=== PATIENT | male | born 1935 | race Caucasian/White ===

== ENCOUNTER 2016-04-07 09:38 | Emergency (ER) | payer OTHER ==
[~2016-04-07] VITALS: Ht 167.6 cm; Wt 94.0 kg
[~2016-04-07 09:38] MED LIST: 1-ME1LIQ PO; ENAL20TA PO; HYDR-3533 PO; NOVO7030P2 SQ; ROBA500T PO; SYNT200T PO
[2016-04-07 09:39] VITALS: BP 226/98; PULSE 86; RESP 15; TEMP 98; O2SAT 96
--- NOTE | 2016-04-07 10:08 | PD ---
HPI Chief Complaint: GI Complaint Time Seen by Provider: 09:52 Travel History International Travel<30 days: No Contact w/Intl Traveler<30days: No Traveled to known affect area: No History of Present Illness HPI 80-year-old male came to the emergency room with history of constipation. Says he last went to the bathroom and had a good bowel movement was 3 days ago. He is not appeared to be in any significant distress. Vital signs are otherwise stable. He does have history of frequent constipation and took some milk of magnesia earlier today with no relief. PFSH Past Medical History Narrative Medical List of his past medical history as reviewed from the nursing note. Asthma: No Autoimmune Disease: No Heart Rhythm Problems: No Cardiac Catheterization: No Cardiovascular Problems: Yes High Cholesterol: Yes Congestive Heart Failure: No COPD: No Diabetes: Yes Patient Takes Glucophage: Yes (METFORMIN 0700) Diminished Hearing: No Genitourinary: Yes (ENLARGED PROSTATE) Heparin Induced Thrombocytopen: No Hypertension: Yes Respiratory: No Myocardial Infarction: No Sleep Apnea: No Influenza Vaccination: Yes Past Surgical History Cholecystectomy: Yes Coronary Artery Bypass Graft: No Eye Surgery: Yes (LT EYE) Family History Family Hypercholesterolemia: Yes Social History Alcohol Use: No Tobacco Use: No Substance Use: No Allergies-Medications (Allergen,Severity, Reaction): Coded Allergies: No Known Allergies (Verified , 06/10/14) Comments No known drug allergies. Reported Meds & Prescriptions Reported Meds & Active Scripts Active Miralax Powder (Polyethylene Glycol 3350 Powder) 17 Gm Powd 17 Gm PO DAILY Mix and dissolve one measuring cap-ful (17 grams) in water or juice. Robaxin (Methocarbamol) 500 Mg Tab 500 Mg PO Q8 PRN Lortab 5 mg/325 mg (Hydrocodone/Acetaminophen 5 mg/325 mg) 1 Tab 0.5-1 Tab PO Q6H PRN 1-Methyl 2-Pyrrolidinone (1-Methyl 2-Pyrrolidone (Bulk)) 10 Mg Tab 1 Tab PO DAILY Reported Novolin 70/30 (Insulin Human Isoph/Insulin Regular) 100 Units/Ml Inj 30 Units SQ DAILY Novolin 70/30 (Insulin Human Isoph/Insulin Regular) 100 Units/Ml Inj 20 Units SQ HS [id number] Mc2 200 Mcg Tab 100 Mcg PO DAILY TAKE ON AN EMPTY STOMACH Enalapril Maleate 20 Mg Tab 20 Mg PO DAILY Narrative Medication List of his home medications reviewed from the nursing note. Review of Systems Except as stated in HPI: all other systems reviewed are Neg Physical Exam Narrative GENERAL: Awake, alert, no obvious distress, looks much younger than his stated age. SKIN: Warm and dry. HEAD: Atraumatic. Normocephalic. EYES: Pupils equal and round. No scleral icterus. No injection or drainage. ENT: No nasal bleeding or discharge. Mucous membranes pink and moist. NECK: Trachea midline. No JVD. CARDIOVASCULAR: Regular rate and rhythm. No murmur appreciated. RESPIRATORY: No accessory muscle use. Clear to auscultation. Breath sounds equal bilaterally. GASTROINTESTINAL: Abdomen soft, non-tender, nondistended. Hepatic and splenic margins not palpable. Rectal exam has a hard ball of stool in the rectal vault. No obvious abnormalities in the rectal or perirectal area. MUSCULOSKELETAL: No obvious deformities. No clubbing. No cyanosis. No edema. NEUROLOGICAL: Awake and alert. No obvious cranial nerve deficits. Motor grossly within normal limits. Normal speech. PSYCHIATRIC: Appropriate mood and affect; insight and judgment normal. Data Data Last Documented VS Vital Signs Date Time Temp Pulse Resp B/P Pulse Ox O2 Delivery O2 Flow Rate FiO2 04/07/16 09:39 98.0 86 15 226/98 96 Orders Fleets Enema (Adult) (Fleets Enema (Adul (04/07/16 10:15) Blood Glucose (04/07/16 10:12) MDM Medical Decision Making Medical Screen Exam Complete: Yes Emergency Medical Condition: Yes Differential Diagnosis Constipation, obstipation Narrative Course 10:58 AM patient was given an adult Fleet enema and went to the bathroom and came out saying he had a good stool output and feels much better. Bedside blood glucose was 197. I'm comfortable discharging him home at this point. I will give him a prescription for 2 weeks of MiraLAX. And is on hydrocodone which is probably the reason for his frequent constipations. He will be advised for high fiber diet as well. Procedures EKG Prior to Arrival: No Diagnosis Primary Impression: Constipation Qualified Code: K59.03 - Drug-induced constipation Additional Impression: Constipation due to outlet obstruction Referrals: Primary Care Physician 3 days Additional Instructions: Please return to the ER if the condition worsens or any other new concerns. Take the medication as per the prescription direction. Drink lots of fluid and high fiber diet. Follow-up with your primary care. Med/Other Pt SpecificInfo: Prescription(s) given Scripts Polyethylene Glycol 3350 Powder (Miralax Powder)17 Gm Powd17 Gm PO DAILY #1 BOTTLE Ref 0 Mix and dissolve one measuring cap-ful (17 grams) in water or juice. Prov:Audrey Guy MD 04/07/16 Disposition: 01 DISCHARGE HOME Condition: Stable Audrey Guy MD Apr 07, 2016 10:08
[2016-04-07] MEDS ORDERED: SOD PHOSPHATE/SOD BIPHOSPHATE (ADULT) ENEMA 133ML PR ONE (10:15)
[2016-04-07] MEDS ORDERED: MIRA33504 PO (10:59)
== END 2016-04-07 11:17 | disposition home or self-care (01) ==
LOC: NEPA 09:38
DX: K59.03 Drug induced constipation (principal); K59.02 Outlet dysfunction constipation; E78.00 Pure hypercholesterolemia, unspecified; E11.9 Type 2 diabetes mellitus without complications; I10 Essential (primary) hypertension
CPT/HCPCS: 99283

== ENCOUNTER 2017-02-17 07:43 | Emergency (ER) | payer OTHER ==
[~2017-02-17] VITALS: Ht 165.1 cm; Wt 82.0 kg
[~2017-02-17 07:43] MED LIST changes: +MIRA33504 PO
[2017-02-17 07:45] VITALS: BP 231/104; PULSE 71; RESP 16; TEMP 98.1; O2SAT 99
[2017-02-17 08:09] VITALS: RESP 18; O2SAT 99
[2017-02-17 08:17] LABS: AUTOMATED NEUTROPHIL # 5.6 TH/MM3 (1.8-7.7); BASOPHIL % 0.6 % (0.0-2.0); EOSINOPHIL # 0.2 TH/MM3 (0-0.4); EOSINOPHIL % 2.1 % (0.0-4.0); HEMO FLAGS DIFF FINAL; LYMPH % 17.6 % (9.0-44.0); LYMPHOCYTE # 1.3 TH/MM3 (1.0-4.8); MEAN CELL VOLUME 85.3 FL (80.0-100.0); MEAN CORPUSCULAR HEMOGLOBIN 28.1 PG (27.0-34.0); MONO % 5.7 % (0.0-8.0); PLATELET COUNT 173 TH/MM3 (150-450); RED BLOOD COUNT 5.39 MIL/MM3 (4.50-5.90); RED CELL DISTRIBUTION WIDTH 14.8 % (11.6-17.2); WHITE BLOOD COUNT 7.5 TH/MM3 (4.0-11.0)
[2017-02-17 08:18] LABS: BLOOD, URINE NEG (NEG); GLUCOSE,URINE NEG (NEG); KETONE, URINE NEG (NEG); NITRITE,URINE NEG (NEG); URINE COLOR LIGHT-YELLOW (YELLW/STRAW)
[2017-02-17] MEDS ORDERED: GABA100C4 PO (08:19)
[2017-02-17] MEDS ORDERED: SYNT88TA PO (08:19)
[2017-02-17] MEDS ORDERED: LOSA50TA PO (08:19)
[2017-02-17 08:28] LABS: COMMENT (UR) CULT NOT INDICATED; CULTURE IF INDICATED CULT NOT INDICATED
[2017-02-17 08:34] LABS: ALT (GPT) 26 U/L (12-78); ANION GAP 4 MEQ/L (5-15); AST (GOT) 19 U/L (15-37); BICARBONATE 28.7 MEQ/L (21.0-32.0); BLOOD UREA NITROGEN 11 MG/DL (7-18); CHLORIDE 103 MEQ/L (98-107); GLOMERULAR FILTRATION RATE 63 ML/MIN (>89); POTASSIUM 4.4 MEQ/L (3.5-5.1); SODIUM (NA) 136 MEQ/L (136-145)
[2017-02-17 08:35] LABS: ALKALINE PHOSPHATASE 67 U/L (45-117); TOTAL BILIRUBIN ADULT 0.5 MG/DL (0.2-1.0)
--- NOTE | 2017-02-17 08:54 | PD ---
HPI Chief Complaint: Abdominal Pain Time Seen by Provider: 08:03 Travel History International Travel<30 days: No Contact w/Intl Traveler<30days: No Traveled to known affect area: No History of Present Illness HPI 81-year-old male presents with central abdominal bloating and nausea. He states that it's felt abnormal and is having difficulty describing it. He states he does have prostate issues and does not know if that is related. He states he is able to urinate but he urinates a lot. He states that he has no other concurrent complaints but patient is a very poor historian and just keeps stating that he has bloating and nausea. Location is epigastric. He states a couple days ago he also had some in his chest. [facility] Past Medical History Asthma: No Autoimmune Disease: No Heart Rhythm Problems: No Cardiac Catheterization: No Cardiovascular Problems: Yes High Cholesterol: Yes Congestive Heart Failure: No COPD: No Diabetes: Yes Patient Takes Glucophage: No Diminished Hearing: No Genitourinary: Yes (ENLARGED PROSTATE) Heparin Induced Thrombocytopen: No Hypertension: Yes Respiratory: No Myocardial Infarction: No Sleep Apnea: No Past Surgical History Cholecystectomy: Yes Coronary Artery Bypass Graft: No Eye Surgery: Yes (LT EYE) Family History Family Hypercholesterolemia: Yes Social History Alcohol Use: No Tobacco Use: No Substance Use: No Allergies-Medications (Allergen,Severity, Reaction): Coded Allergies: No Known Allergies (Verified Adverse Reaction, Unknown, 02/17/17) Reported Meds & Prescriptions Reported Meds & Active Scripts Active Miralax Powder (Polyethylene Glycol 3350 Powder) 17 Gm Powd 17 Gm PO DAILY Mix and dissolve one measuring cap-ful (17 grams) in water or juice. 1-Methyl 2-Pyrrolidinone (1-Methyl 2-Pyrrolidone (Bulk)) 10 Mg Tab 1 Tab PO DAILY Reported Gabapentin 100 Mg Cap 100 Mg PO BID Losartan (Losartan Potassium) 50 Mg Tab 50 Mg PO BID Synthroid (Levothyroxine Sodium) 88 Mcg Tab 88 Mcg PO DAILY Novolin 70/30 (Insulin Human Isoph/Insulin Regular) 100 Units/Ml Inj 30 Units SQ DAILY Novolin 70/30 (Insulin Human Isoph/Insulin Regular) 100 Units/Ml Inj 20 Units SQ HS Review of Systems Except as stated in HPI: all other systems reviewed are Neg Physical Exam Narrative GENERAL: Well-nourished, well-developed patient. SKIN: Warm and dry. HEAD: Normocephalic and atraumatic. EYES: No injection or drainage. ENT: No nasal drainage noted. NECK: Supple, trachea midline. CARDIOVASCULAR: Regular rate and rhythm RESPIRATORY: No increased effort. No accessory muscle use. GASTROINTESTINAL: Abdomen soft, non-tender, nondistended. EXTREMITIES: No edema. BACK: Nontender without obvious deformity. NEUROLOGICAL: Awake and alert. Motor and sensory grossly within normal limits. Normal speech. Data Data Last Documented VS Vital Signs Date Time Temp Pulse Resp B/P (MAP) Pulse Ox O2 Delivery O2 Flow Rate FiO2 02/17/17 11:03 02/17/17 09:30 71 19 98 Room Air 02/17/17 07:45 98.1 Orders Orders Complete Blood Count With Diff (02/17/17 07:55) Comprehensive Metabolic Panel (02/17/17 07:55) Urinalysis - C+S If Indicated (02/17/17 07:55) Lipase (02/17/17 07:55) Iv Access Insert/Monitor (02/17/17 07:55) Oximetry (02/17/17 07:55) Ct Abd/Pel W Iv Contrast(Rout) (02/17/17 ) Electrocardiogram (02/17/17 08:27) Ckmb (Isoenzyme) Profile (02/17/17 08:27) Magnesium (Mg) (02/17/17 08:27) Troponin I (02/17/17 08:27) CKMB (02/17/17 08:05) CKMB% (02/17/17 08:05) Iohexol 350 Inj (Omnipaque 350 Inj) (02/17/17 10:05) Labs Laboratory Tests Test 02/17/17 08:05 White Blood Count 7.5 TH/MM3 Red Blood Count 5.39 MIL/MM3 Hemoglobin 15.1 GM/DL Hematocrit 46.0 % Mean Corpuscular Volume 85.3 FL Mean Corpuscular Hemoglobin 28.1 PG Mean Corpuscular Hemoglobin Concent 33.0 % Red Cell Distribution Width 14.8 % Platelet Count 173 TH/MM3 Mean Platelet Volume 9.5 FL Neutrophils (%) (Auto) 74.0 % Lymphocytes (%) (Auto) 17.6 % Monocytes (%) (Auto) 5.7 % Eosinophils (%) (Auto) 2.1 % Basophils (%) (Auto) 0.6 % Neutrophils # (Auto) 5.6 TH/MM3 Lymphocytes # (Auto) 1.3 TH/MM3 Monocytes # (Auto) 0.4 TH/MM3 Eosinophils # (Auto) 0.2 TH/MM3 Basophils # (Auto) 0.0 TH/MM3 CBC Comment DIFF FINAL Differential Comment Urine Color LIGHT-YELLOW Urine Turbidity CLEAR Urine pH 7.0 Urine Specific Belt 1.005 Urine Protein NEG mg/dL Urine Glucose (UA) NEG mg/dL Urine Ketones NEG mg/dL Urine Occult Blood NEG Urine Nitrite NEG Urine Bilirubin NEG Urine Urobilinogen LESS THAN 2.0 MG/DL Urine Leukocyte Esterase NEG Urine RBC 1 /hpf Urine WBC LESS THAN 1 /hpf Microscopic Urinalysis Comment CULT NOT INDICATED Blood Urea Nitrogen 11 MG/DL Creatinine 1.12 MG/DL Random Glucose 193 MG/DL Total Protein 7.7 GM/DL Albumin 4.0 GM/DL Calcium Level 9.1 MG/DL Alkaline Phosphatase 67 U/L Aspartate Amino Transf (AST/SGOT) 19 U/L Alanine Aminotransferase (ALT/SGPT) 26 U/L Total Bilirubin 0.5 MG/DL Sodium Level 136 MEQ/L Potassium Level 4.4 MEQ/L Chloride Level 103 MEQ/L Carbon Dioxide Level 28.7 MEQ/L Anion Gap 4 MEQ/L Estimat Glomerular Filtration Rate 63 ML/MIN Magnesium Level 2.7 MG/DL Total Creatine Kinase 200 U/L Creatine Kinase MB 3.1 NG/ML Troponin I LESS THAN 0.02 NG/ML Lipase 50 U/L [facility] Medical Decision Making Medical Screen Exam Complete: Yes Emergency Medical Condition: Yes Medical Record Reviewed: Yes (past history confirmed) Interpretation(s) CBC & BMP Diagram 02/17/17 08:05 Total Protein 7.7, Albumin 4.0, Calcium Level 9.1, Alkaline Phosphatase 67, Aspartate Amino Transf (AST/SGOT) 19, Alanine Aminotransferase (ALT/SGPT) 26, Total Bilirubin 0.5 Last 24 hours Impressions Abdomen/Pelvis CT 02/17/17 0000 Signed Impressions: Service Date/Time: Friday, February 17, 2017 09:44 - CONCLUSION: 1. No acute abnormality. 2. Hepatic steatosis. 3. Prior cholecystectomy. Kelechi Villasenor Jr., MD Differential Diagnosis Gastritis, atypical cardiac, appendicitis, stone, UTI Narrative Course Will check blood work, urinalysis, EKG, CT scan abdominal pelvis and reevaluate ED workup no emergent process, given location of pain in epigastric region and cardiac risk factors I advised for patient to stay in chest pain center for cardiac workup. He states he has a dog at home and cannot stay. I advised him to follow with his primary or return for completion of testing and he understands. Nurse at bedside.AMA: The risks of leaving against medical advice without further evaluation treatment were discussed with the patient. These risks include cardiac dysfunction, cardiac dysrhythmia, possible heart attack or . The patient indicated understanding of these risks and appeared to have the capacity to make this decision. Diagnosis Primary Impression: Abdominal pain Qualified Codes: R10.13 - Epigastric pain Patient Instructions: General Instructions Additional Instructions: follow primary sofy for cardiology and gi evaluation Med/Other Pt SpecificInfo: No Change to Meds Disposition: 07 AGAINST MEDICAL ADVICE Condition: Stable Kerri Smith MD Feb 17, 2017 08:54
[2017-02-17 09:19] LABS: MAGNESIUM 2.7 MG/DL (1.5-2.5)
[2017-02-17 09:22] LABS: CREATINE KINASE 200 U/L (39-308)
[2017-02-17 09:30] VITALS: BP 210/105; PULSE 71; RESP 19; O2SAT 98
[2017-02-17 09:34] LABS: CKMB 3.1 NG/ML (0.5-3.6)
[2017-02-17] MEDS ORDERED: IOHEXOL 350 MG/ML 10 ML VIAL (for RAD DIAG) IVCONTRAST ONE (10:05)
--- NOTE | 2017-02-17 10:37 | RADRPT ---
EXAM DATE/TIME: 02/17/2017 09:44 [facility] COMPARISON: No previous studies available for comparison. INDICATIONS : Mid abdominal pain. IV CONTRAST: 95 cc Omnipaque 350 (iohexol) IV ORAL CONTRAST: No oral contrast ingested. RADIATION DOSE: 6.64 CTDIvol (mGy) MEDICAL HISTORY : Hypertension. Diabetes SURGICAL HISTORY : Cholecystectomy. ENCOUNTER: Initial ACUITY: 1 day PAIN SCALE: 5/10 LOCATION: upper quadrant TECHNIQUE: Volumetric scanning of the abdomen and pelvis was performed. Using automated exposure control and ad justment of the mA and/or kV according to patient size, radiation dose was kept as low as reasonably achievable to obtain optimal diagnostic quality images. DICOM format image data is available electro nically for review and comparison. FINDINGS: LOWER LUNGS: The visualized lower lungs are clear. LIVER: Homogeneously low in density without lesion. There is no dilation of the biliary tree. Gallbladder s urgically absent. SPLEEN: Normal size without lesion. PANCREAS: Within normal limits. KIDNEYS: Normal in size and shape. There is no mass, stone or hydronephrosis. ADRENAL GLANDS: Within normal limits. VASCULAR: There is no aortic aneurysm. BOWEL/MESENTERY: The stomach, small bowel, and colon demonstrate no acute abnormality. There is no free intraperitone al air or fluid. ABDOMINAL WALL: Within normal limits. RETROPERITONEUM: There is no lymphadenopathy. BLADDER: No wall thickening or mass. REPRODUCTIVE: Within normal limits. INGUINAL: There is no lymphadenopathy or hernia. MUSCULOSKELETAL: Within normal limits for patient age. CONCLUSION: 1. No acute abnormality. 2. Hepatic steatosis. 3. Prior cholecystectomy. Kelechi Villasenor Jr., MD on February 17, 2017 at 10:12 Board Certified Radiologist. This report was verified electronically.
--- NOTE | 2017-02-17 19:02 | EKG ---
Date Performed: 02/17/2017 Time Performed: 09:20:41 PTAGE: 81 years EKG: Sinus rhythm MARKED RIGHT AXIS DEVIATION RIGHT BUNDLE BRANCH BLOCK Since previous tracing, no significant change noted ABNORMAL ECG PREVIOUS TRACING : 03/09/2013 15.08 DOCTOR: Ascencion Morgan Interpretating Date/Time 02/17/2017 19:01:08
== END 2017-02-17 11:00 | disposition left against medical advice (07) ==
LOC: NEPE 07:43
DX: R10.13 Epigastric pain (principal); K76.0 Fatty (change of) liver, not elsewhere classified; I45.10 Unspecified right bundle-branch block; R94.31 Abnormal electrocardiogram [ECG] [EKG]; E78.00 Pure hypercholesterolemia, unspecified; E11.9 Type 2 diabetes mellitus without complications; N40.0 Benign prostatic hyperplasia without lower urinary tract symptoms; I10 Essential (primary) hypertension
CPT/HCPCS: 74177; 80053; 81001; 82550; 82552; 83690; 83735; 84484; 85025; 93005; 99285; Q9967

== ENCOUNTER 2017-03-24 03:52 | Emergency (ER) | payer OTHER ==
[~2017-03-24] VITALS: Ht 167.6 cm; Wt 68.0 kg
[~2017-03-24 03:52] MED LIST changes: -ENAL20TA PO; +GABA100C4 PO; -HYDR-3533 PO; +LOSA50TA PO; -ROBA500T PO; -SYNT200T PO; +SYNT88TA PO
[2017-03-24 03:56] VITALS: BP 219/109; PULSE 80; RESP 18; TEMP 98; O2SAT 98
[2017-03-24] MEDS ORDERED: NOVO7030P2 SQ ×2 (04:04)
[2017-03-24 04:15] VITALS: BP 203/88; PULSE 72; RESP 18; O2SAT 97
[2017-03-24] MEDS ORDERED: LOSA100T2 PO (04:18)
[2017-03-24] MEDS ORDERED: LIDOCAINE VISCOUS 2% SOLN 15 ML UDC SWISH-SWAL ONE (04:30)
[2017-03-24] MEDS ORDERED: ALUMINUM/MAGNESIUM/SIMETH 30 ML CUP PO ONE (04:30)
[2017-03-24] MEDS ORDERED: LABETALOL HCL 100 MG/20 ML VIAL IV PUSH ONE (04:30)
--- NOTE | 2017-03-24 04:41 | PD ---
HPI Chief Complaint: Hypertension Time Seen by Provider: 04:17 Travel History International Travel<30 days: No Contact w/Intl Traveler<30days: No Traveled to known affect area: No History of Present Illness HPI This is an 81-year-old male who presents to the emergency department with epigastric discomfort. He says he feels like he's had reflux since 1 AM, constant, moderate severity, nonradiating, feeling like a sharp pain in his upper abdomen. He's had this pain before and is not going away. He also has had trouble controlling his blood pressure. Last night it was elevated so he took 100 and loose are but is not improving. He denies any chest pain and his pain is all in his upper abdomen. He denies any shortness of breath. PFSH Past Medical History Asthma: No Autoimmune Disease: No Heart Rhythm Problems: No Cardiac Catheterization: No Cardiovascular Problems: Yes High Cholesterol: Yes Congestive Heart Failure: No COPD: No Diabetes: Yes Patient Takes Glucophage: Yes Diminished Hearing: No Genitourinary: Yes (ENLARGED PROSTATE) Heparin Induced Thrombocytopen: No Hypertension: Yes Respiratory: No Myocardial Infarction: No Sleep Apnea: No Past Surgical History Cholecystectomy: Yes Coronary Artery Bypass Graft: No Eye Surgery: Yes (LT EYE) Family History Family Hypercholesterolemia: Yes Social History Alcohol Use: No Tobacco Use: No Substance Use: No Allergies-Medications (Allergen,Severity, Reaction): Coded Allergies: No Known Allergies (Verified Adverse Reaction, Unknown, 03/24/17) Reported Meds & Prescriptions Reported Meds & Active Scripts Active Reported Losartan-Hydrochlorothiazide 100-25 Mg Tab 1 Tab PO DAILY Novolin 70-30 Inj (Insulin Human Isoph/Insulin Regular) 1,000 Unit/10 Ml Vial 20 Units SQ DAILY Novolin 70-30 Inj (Insulin Human Isoph/Insulin Regular) 1,000 Unit/10 Ml Vial 30 Units SQ Gabapentin 100 Mg Cap 100 Mg PO BID Losartan (Losartan Potassium) 50 Mg Tab 50 Mg PO BID Synthroid (Levothyroxine Sodium) 88 Mcg Tab 88 Mcg PO DAILY Review of Systems Except as stated in HPI: all other systems reviewed are Neg Physical Exam Narrative GENERAL:Well appearing, no acute distress SKIN: Focused skin assessment warm and dry. HEAD: Atraumatic. Normocephalic. EYES: Pupils equal and round. No injection or drainage. ENT: Moist mucous membranes NECK: Trachea midline. CARDIOVASCULAR: Regular rate and rhythm. No murmur appreciated. RESPIRATORY: Clear to auscultation. Breath sounds equal bilaterally. GASTROINTESTINAL: Abdomen soft, non-tender, nondistended. MUSCULOSKELETAL: No obvious deformities. NEUROLOGICAL: Awake and alert. No obvious cranial nerve deficits. Moving all extremities. PSYCHIATRIC: Appropriate mood and affect; insight and judgment normal. Data Data Last Documented VS Vital Signs Date Time Temp Pulse Resp B/P (MAP) Pulse Ox O2 Delivery O2 Flow Rate FiO2 03/24/17 05:14 65 18 174/81 (112) 98 Room Air 03/24/17 03:56 98.0 Orders Orders Complete Blood Count With Diff (03/24/17 04:23) Comprehensive Metabolic Panel (03/24/17 04:23) Troponin I (03/24/17 04:23) Electrocardiogram (03/24/17 ) Lipase (03/24/17 04:23) Al-Mag Hy-Si 40-40-4 Mg/Ml Liq (Mag-Al P (03/24/17 04:30) Lidocaine 2% Viscous (Xylocaine 2% Visco (03/24/17 04:30) Labetalol Inj (Trandate Inj) (03/24/17 04:30) Labs Laboratory Tests Test 03/24/17 04:35 White Blood Count 5.4 TH/MM3 Red Blood Count 5.04 MIL/MM3 Hemoglobin 14.6 GM/DL Hematocrit 42.2 % Mean Corpuscular Volume 83.7 FL Mean Corpuscular Hemoglobin 28.9 PG Mean Corpuscular Hemoglobin Concent 34.5 % Red Cell Distribution Width 14.1 % Platelet Count 212 TH/MM3 Mean Platelet Volume 8.7 FL Neutrophils (%) (Auto) 64.5 % Lymphocytes (%) (Auto) 24.0 % Monocytes (%) (Auto) 9.5 % Eosinophils (%) (Auto) 1.6 % Basophils (%) (Auto) 0.4 % Neutrophils # (Auto) 3.5 TH/MM3 Lymphocytes # (Auto) 1.3 TH/MM3 Monocytes # (Auto) 0.5 TH/MM3 Eosinophils # (Auto) 0.1 TH/MM3 Basophils # (Auto) 0.0 TH/MM3 CBC Comment DIFF FINAL Differential Comment Blood Urea Nitrogen 12 MG/DL Creatinine 1.07 MG/DL Random Glucose 264 MG/DL Total Protein 7.5 GM/DL Albumin 3.9 GM/DL Calcium Level 8.6 MG/DL Alkaline Phosphatase 69 U/L Aspartate Amino Transf (AST/SGOT) 20 U/L Alanine Aminotransferase (ALT/SGPT) 24 U/L Total Bilirubin 0.5 MG/DL Sodium Level 131 MEQ/L Potassium Level 4.1 MEQ/L Chloride Level 97 MEQ/L Carbon Dioxide Level 26.2 MEQ/L Anion Gap 8 MEQ/L Estimat Glomerular Filtration Rate 66 ML/MIN Troponin I LESS THAN 0.02 NG/ML Lipase 60 U/L MDM Medical Decision Making Medical Screen Exam Complete: Yes Emergency Medical Condition: Yes Interpretation(s) Afebrile, hypertensive No leukocytosis Electrolytes are reassuring Differential Diagnosis Hypertensive urgency, hypertensive emergency, reflux, gastritis, pancreatitis Narrative Course This is an 81-year-old male who presents to the emergency department with epigastric discomfort that started in the middle the night. He says he has a history reflux and he's had this pain before. He says every time this happens his blood pressure shoots up and he has difficulty getting it down. He thinks he needs to see a GI specialist. He was placed on a monitor and an IV was established. He was quite hypertensive on arrival. He was given labetalol and his blood pressure improved and is now decreased 20%. His initial troponin was reassuring and his EKG is nonischemic. He feels much better after a GI cocktail. I do suspect his pain complaints or GI in nature as he is quite tender in the upper abdomen however I asked him to stay to have repeat troponin 3 hours. If this is reassuring at think patient is safe for follow-up with his primary care physician. I think it's reasonable to initiate the patient on low dose amlodipine in addition to his current medications. Physician Communication Physician Communication If you develop severe chest pain, shortness of breath, sweating, lightheadedness , dizziness or difficulty breathing return to the emergency department immediately. Followup with your primary care physician in 2-3 days if your symptoms are not resolved. Diagnosis Primary Impression: GERD (gastroesophageal reflux disease) Qualified Codes: K21.9 - Gastro-esophageal reflux disease without esophagitis Additional Impression: Hypertension Qualified Codes: I10 - Essential (primary) hypertension Admitting Information Admitting Physician Requests: Admit Patient Instructions: General Instructions Additional Instructions: If you develop severe chest pain, shortness of breath, sweating, lightheadedness , dizziness or difficulty breathing return to the emergency department immediately. Followup with your primary care physician in 2-3 days if your symptoms are not resolved. Med/Other Pt SpecificInfo: Prescription(s) given Scripts Amlodipine (Amlodipine) 5 Mg Tab 5 MG PO DAILY for Blood Pressure Management, #30 TAB 0 Refills Prov: Klaudia Corona MD 03/24/17 Sucralfate (Sucralfate) 1 Gram Tab 1 GM PO TID for Duodenal ulcer, #90 TAB 0 Refills on empty stomach Prov: Klaudia Corona MD 03/24/17 Ranitidine (Ranitidine) 150 Mg Tab 150 MG PO BID for Heartburn Management, #60 TAB 0 Refills Prov: Klaudia Corona MD 03/24/17 Disposition: 01 DISCHARGE HOME Condition: Stable Klaudia Corona MD Mar 24, 2017 04:41
[2017-03-24 04:52] LABS: AUTOMATED NEUTROPHIL # 3.5 TH/MM3 (1.8-7.7); BASOPHIL % 0.4 % (0.0-2.0); EOSINOPHIL # 0.1 TH/MM3 (0-0.4); EOSINOPHIL % 1.6 % (0.0-4.0); HEMATOCRIT 42.2 % (39.0-51.0); HEMOGLOBIN 14.6 GM/DL (13.0-17.0); LYMPHOCYTE # 1.3 TH/MM3 (1.0-4.8); MEAN CELL VOLUME 83.7 FL (80.0-100.0); MEAN CORPUSCULAR HEMOGLOBIN 28.9 PG (27.0-34.0); MEAN CORPUSCULAR HGB CONC 34.5 % (32.0-36.0); MEAN PLATELET VOLUME 8.7 FL (7.0-11.0); MONO % 9.5 % (0.0-8.0); MONOCYTE # 0.5 TH/MM3 (0-0.9); NEUT % 64.5 % (16.0-70.0); PLATELET COUNT 212 TH/MM3 (150-450); RED BLOOD COUNT 5.04 MIL/MM3 (4.50-5.90); RED CELL DISTRIBUTION WIDTH 14.1 % (11.6-17.2); WHITE BLOOD COUNT 5.4 TH/MM3 (4.0-11.0)
[2017-03-24 05:07] LABS: ALBUMIN 3.9 GM/DL (3.4-5.0); ALT (GPT) 24 U/L (12-78); AST (GOT) 20 U/L (15-37); BICARBONATE 26.2 MEQ/L (21.0-32.0); BLOOD UREA NITROGEN 12 MG/DL (7-18); CALCIUM 8.6 MG/DL (8.5-10.1); CHLORIDE 97 MEQ/L (98-107); CREATININE 1.07 MG/DL (0.60-1.30); GLOMERULAR FILTRATION RATE 66 ML/MIN (>89); GLUCOSE,RANDOM 264 MG/DL (74-106); LIPASE 60 U/L (73-393); SODIUM (NA) 131 MEQ/L (136-145)
[2017-03-24 05:12] LABS: ALKALINE PHOSPHATASE 69 U/L (45-117); TOTAL BILIRUBIN ADULT 0.5 MG/DL (0.2-1.0); TOTAL PROTEIN 7.5 GM/DL (6.4-8.2); TROPONIN I LESS THAN 0.02 NG/ML (0.02-0.05)
[2017-03-24 05:14] VITALS: BP 174/81; PULSE 65; RESP 18; O2SAT 98
[2017-03-24] MEDS ORDERED: RANI150T PO (06:35)
[2017-03-24] MEDS ORDERED: AMLO5TAB2 PO (06:35)
[2017-03-24] MEDS ORDERED: SUCR1TAB PO (06:35)
[2017-03-24 07:00] VITALS: BP 179/85; PULSE 78; RESP 18; O2SAT 98
[2017-03-24] MEDS ORDERED: FAMOTIDINE 20 MG TAB PO ONE (08:00)
--- NOTE | 2017-03-24 17:20 | EKG ---
Date Performed: 03/24/2017 Time Performed: 04:51:30 PTAGE: 81 years EKG: Sinus rhythm BORDERLINE RIGHT AXIS DEVIATION INTRAVENTRICULAR CONDUCTION DELAY Since previous tracing, no signifi cant change noted ABNORMAL ECG PREVIOUS TRACING : 02/17/2017 09.20 DOCTOR: Dipti Yen Interpretating Date/Time 03/24/2017 17:19:53
== END 2017-03-24 08:36 | disposition home or self-care (01) ==
LOC: NEPC 03:52
DX: K21.9 Gastro-esophageal reflux disease without esophagitis (principal); I10 Essential (primary) hypertension; E11.9 Type 2 diabetes mellitus without complications; Z79.4 Long term (current) use of insulin
CPT/HCPCS: 80053; 83690; 84484; 85025; 93005; 96374

== ENCOUNTER 2017-03-28 08:08 | Emergency (ER) | payer OTHER ==
[~2017-03-28] VITALS: Ht 167.6 cm; Wt 77.5 kg
[~2017-03-28 08:08] MED LIST changes: -1-ME1LIQ PO; +AMLO5TAB2 PO; +LOSA100T2 PO; -MIRA33504 PO; +RANI150T PO; +SUCR1TAB PO
[2017-03-28 08:10] VITALS: BP 144/83; PULSE 70; RESP 14; TEMP 97.9; O2SAT 99
[2017-03-28] MEDS ORDERED: PANT40TA3 PO (08:25)
[2017-03-28 08:28] VITALS: BP 198/91; PULSE 69; RESP 18; O2SAT 99
[2017-03-28] MEDS ORDERED: SODIUM CHLOR 0.9% 1000 ML INJ 1,000 ML IV SCH (08:34)
[2017-03-28] MEDS ORDERED: FAMOTIDINE 20 MG/2 ML VIAL IV PUSH ONE (08:45)
[2017-03-28] MEDS ORDERED: MORPHINE SULFATE 4 MG/ML INJ IV PUSH ONE (08:45)
[2017-03-28] MEDS ORDERED: ALUMINUM/MAGNESIUM/SIMETH 30 ML CUP PO ONE (08:45)
[2017-03-28] MEDS ORDERED: LIDOCAINE VISCOUS 2% SOLN 15 ML UDC PO ONE (08:45)
[2017-03-28] MEDS ORDERED: ONDANSETRON HCL 4 MG/2 ML VIAL IVP ONE (08:45)
[2017-03-28] MEDS ORDERED: SODIUM CHLORIDE 0.9% FLUSH 10 ML FLUSH IV FLUSH PRN (08:45)
--- NOTE | 2017-03-28 08:48 | PD ---
HPI Chief Complaint: Edema Time Seen by Provider: 08:23 Travel History International Travel<30 days: No Contact w/Intl Traveler<30days: No Traveled to known affect area: No History of Present Illness HPI The patient is a 81-year-old male who presents emergency department for epigastric abdominal discomfort and elevated blood pressure. The patient has a history of similar symptoms of the last several months, has been evaluated in the emergency department several times and underwent CT the abdomen and pelvis which was unremarkable. The patient states he saw a coordinator volunteer services, cannot recall the name, and had an outpatient endoscopy. The patient is currently on ranitidine, Protonix, and Carafate. The patient states the abdominal pain is epigastric, feels like it is bloating and swollen at times, and notes that when he has this discomfort is blood pressure elevates. He denies any lower abdominal pain, change in bowel habits, or bloody stools. He denies any chest pain, shortness of breath, or nausea. He does have a history of previous cholecystectomy. Symptoms are moderate, there are no current alleviating or exacerbating factors. The patient does state he has had a 5 pound weight loss over the last several months. He denies any known history of cancer. He denies tobacco use. PFSH Past Medical History Asthma: No Autoimmune Disease: No Heart Rhythm Problems: No Cardiac Catheterization: No Cardiovascular Problems: Yes High Cholesterol: Yes Congestive Heart Failure: No COPD: No Cerebrovascular Accident: Yes Diabetes: Yes Patient Takes Glucophage: Yes Diminished Hearing: No Genitourinary: Yes (ENLARGED PROSTATE) Heparin Induced Thrombocytopen: No Hypertension: Yes Respiratory: No Myocardial Infarction: No Sleep Apnea: No Past Surgical History Cholecystectomy: Yes Coronary Artery Bypass Graft: No Eye Surgery: Yes (LT EYE) Family History Family Hypercholesterolemia: Yes Social History Alcohol Use: No Tobacco Use: No Substance Use: No Allergies-Medications (Allergen,Severity, Reaction): Coded Allergies: No Known Allergies (Verified Adverse Reaction, Unknown, 03/28/17) Reported Meds & Prescriptions Reported Meds & Active Scripts Active Amlodipine (Amlodipine Besylate) 5 Mg Tab 5 Mg PO DAILY Sucralfate 1 Gram Tab 1 Gm PO TID on empty stomach Ranitidine (Ranitidine HCl) 150 Mg Tab 150 Mg PO BID Reported Pantoprazole (Pantoprazole Sodium) 40 Mg Tab 40 Mg PO DAILY Losartan-Hydrochlorothiazide 100-25 Mg Tab 1 Tab PO DAILY Novolin 70-30 Inj (Insulin Human Isoph/Insulin Regular) 1,000 Unit/10 Ml Vial 20 Units SQ DAILY Novolin 70-30 Inj (Insulin Human Isoph/Insulin Regular) 1,000 Unit/10 Ml Vial 30 Units SQ Gabapentin 100 Mg Cap 100 Mg PO BID Losartan (Losartan Potassium) 50 Mg Tab 50 Mg PO BID Synthroid (Levothyroxine Sodium) 88 Mcg Tab 88 Mcg PO DAILY Review of Systems Except as stated in HPI: all other systems reviewed are Neg General / Constitutional: Positive: Weight Loss (5 pounds over 2 months) HENT: No: Lightheadedness Cardiovascular: No: Chest Pain or Discomfort Respiratory: No: Shortness of Breath Gastrointestinal: Positive: Abdominal Pain, No: Nausea, Vomiting, Diarrhea Genitourinary: No: Decreased Urinary Output Musculoskeletal: No: Edema Neurologic: No: Dizziness Physical Exam Narrative GENERAL: Awake, alert, nontoxic-appearing 81-year-old male who appears his stated age and is in no acute respiratory distress. SKIN: Focused skin assessment warm/dry. HEAD: Atraumatic. Normocephalic. EYES: Pupils equal and round. No scleral icterus. No injection or drainage. ENT: No nasal bleeding or discharge. Mucous membranes pink and moist. NECK: Trachea midline. No JVD. CARDIOVASCULAR: Regular rate and rhythm. No murmur appreciated. RESPIRATORY: No accessory muscle use. Clear to auscultation. Breath sounds equal bilaterally. GASTROINTESTINAL: Abdomen soft, minimal epigastric tenderness. Well-healed scar right upper quadrant. No significant tympany or distention noted. MUSCULOSKELETAL: No obvious deformities. No clubbing. No cyanosis. No edema. NEUROLOGICAL: Awake and alert. No obvious cranial nerve deficits. Motor grossly within normal limits. Normal speech. PSYCHIATRIC: Appropriate mood and affect; insight and judgment normal. Data Data Last Documented VS Vital Signs Date Time Temp Pulse Resp B/P (MAP) Pulse Ox O2 Delivery O2 Flow Rate FiO2 03/28/17 10:45 79 110/68 (82) 03/28/17 08:51 18 99 Room Air 03/28/17 08:10 97.9 Orders Orders Complete Blood Count With Diff (03/28/17 08:34) Comprehensive Metabolic Panel (03/28/17 08:34) Lipase (03/28/17 08:34) Iv Access Insert/Monitor (03/28/17 08:34) Ecg Monitoring (03/28/17 08:34) Oximetry (03/28/17 08:34) Morphine Inj (Morphine Inj) (03/28/17 08:45) Ondansetron Inj (Zofran Inj) (03/28/17 08:45) Sodium Chlor 0.9% 1000 Ml Inj (Ns 1000 M (03/28/17 08:34) Sodium Chloride 0.9% Flush (Ns Flush) (03/28/17 08:45) Electrocardiogram (03/28/17 08:34) Famotidine Inj (Pepcid Inj) (03/28/17 08:45) Al-Mag Hy-Si 40-40-4 Mg/Ml Liq (Mag-Al P (03/28/17 08:45) Lidocaine 2% Viscous (Xylocaine 2% Visco (03/28/17 08:45) Morphine Inj (Morphine Inj) (03/28/17 09:00) Sodium Chlorid 0.9% 500 Ml Inj (Ns 500 M (03/28/17 10:15) Hydromorphone Pf Inj (Dilaudid Pf Inj) (03/28/17 10:15) Ct Abd/Pel W/O Iv Contrast (03/28/17 ) Labs Laboratory Tests Test 03/28/17 08:45 White Blood Count 6.4 TH/MM3 Red Blood Count 5.45 MIL/MM3 Hemoglobin 15.5 GM/DL Hematocrit 46.0 % Mean Corpuscular Volume 84.4 FL Mean Corpuscular Hemoglobin 28.5 PG Mean Corpuscular Hemoglobin Concent 33.8 % Red Cell Distribution Width 14.4 % Platelet Count 224 TH/MM3 Mean Platelet Volume 8.1 FL Neutrophils (%) (Auto) 59.6 % Lymphocytes (%) (Auto) 28.7 % Monocytes (%) (Auto) 9.5 % Eosinophils (%) (Auto) 1.5 % Basophils (%) (Auto) 0.7 % Neutrophils # (Auto) 3.8 TH/MM3 Lymphocytes # (Auto) 1.8 TH/MM3 Monocytes # (Auto) 0.6 TH/MM3 Eosinophils # (Auto) 0.1 TH/MM3 Basophils # (Auto) 0.0 TH/MM3 CBC Comment DIFF FINAL Differential Comment Blood Urea Nitrogen 12 MG/DL Creatinine 1.33 MG/DL Random Glucose 235 MG/DL Total Protein 8.1 GM/DL Albumin 4.2 GM/DL Calcium Level 9.2 MG/DL Alkaline Phosphatase 67 U/L Aspartate Amino Transf (AST/SGOT) 29 U/L Alanine Aminotransferase (ALT/SGPT) 28 U/L Total Bilirubin 0.8 MG/DL Sodium Level 126 MEQ/L Potassium Level 4.8 MEQ/L Chloride Level 89 MEQ/L Carbon Dioxide Level 28.8 MEQ/L Anion Gap 8 MEQ/L Estimat Glomerular Filtration Rate 51 ML/MIN Lipase 66 U/L [facility] Medical Decision Making Medical Screen Exam Complete: Yes Emergency Medical Condition: Yes Medical Record Reviewed: Yes Interpretation(s) EKG reveals normal sinus rhythm with a rate of 70. Right bundle-branch block with RSR prime in V1 and QRS of 144 ms. Laboratory Tests Test 03/28/17 08:45 White Blood Count 6.4 TH/MM3 Red Blood Count 5.45 MIL/MM3 Hemoglobin 15.5 GM/DL Hematocrit 46.0 % Mean Corpuscular Volume 84.4 FL Mean Corpuscular Hemoglobin 28.5 PG Mean Corpuscular Hemoglobin Concent 33.8 % Red Cell Distribution Width 14.4 % Platelet Count 224 TH/MM3 Mean Platelet Volume 8.1 FL Neutrophils (%) (Auto) 59.6 % Lymphocytes (%) (Auto) 28.7 % Monocytes (%) (Auto) 9.5 % Eosinophils (%) (Auto) 1.5 % Basophils (%) (Auto) 0.7 % Neutrophils # (Auto) 3.8 TH/MM3 Lymphocytes # (Auto) 1.8 TH/MM3 Monocytes # (Auto) 0.6 TH/MM3 Eosinophils # (Auto) 0.1 TH/MM3 Basophils # (Auto) 0.0 TH/MM3 CBC Comment DIFF FINAL Differential Comment Blood Urea Nitrogen 12 MG/DL Creatinine 1.33 MG/DL Random Glucose 235 MG/DL Total Protein 8.1 GM/DL Albumin 4.2 GM/DL Calcium Level 9.2 MG/DL Alkaline Phosphatase 67 U/L Aspartate Amino Transf (AST/SGOT) 29 U/L Alanine Aminotransferase (ALT/SGPT) 28 U/L Total Bilirubin 0.8 MG/DL Sodium Level 126 MEQ/L Potassium Level 4.8 MEQ/L Chloride Level 89 MEQ/L Carbon Dioxide Level 28.8 MEQ/L Anion Gap 8 MEQ/L Estimat Glomerular Filtration Rate 51 ML/MIN Lipase 66 U/L Last Impressions Abdomen/Pelvis CT 03/28/17 0000 Signed Impressions: Service Date/Time: Tuesday, March 28, 2017 10:54 - CONCLUSION: 1. Prominent stool throughout the colon. 2. Left hydrocele. Matthew Medel MD Differential Diagnosis Differential diagnosis includes gastritis, pancreatitis, peptic ulcer disease, hypertension, retained biliary stone, GERD, hiatal hernia. Narrative Course IV was established, labs are drawn and sent, and the patient was placed on cardiac telemetry monitoring and continuous pulse oximetry monitoring. I reviewed the patient's EMR, he had a CT the abdomen and pelvis performed on February 17, 2017 which revealed hepatic steatosis, previous cholecystectomy, but no acute findings. The patient states he had the endoscopy performed an outpatient basis in [place], I cannot evaluate the findings of the endoscopy. He cannot recall the name of his coordinator volunteer services. The patient was provided morphine, Zofran, and a GI cocktail with Pepcid. Lipase level was sent to lab. The patient's lipase level was normal. Sodium is 126, his last sodium was 131, previous sodiums were normal. Creatinine is slightly elevated at 1.3, previous creatinines are normal. This may be secondary to dehydration. Therefore, the patient was administered IV fluids. The patient continued to have epigastric abdominal pain, was standing next to the bed and bent over with dry heaves. Therefore, the patient was administered another dose of pain medications. CT of the abdomen and pelvis was performed to rule out perforated viscus. CT reveals no evidence of perforated viscus, prominent stool throughout the colon. The patient will be placed on stool softener and a laxative. Patient is stable for outpatient follow-up. Diagnosis Primary Impression: Epigastric abdominal pain Additional Impression: Constipation Qualified Codes: K59.00 - Constipation, unspecified Patient Instructions: General Instructions Additional Instructions: Medications as directed. Follow-up with her primary physician and/or coordinator volunteer services. Return if symptoms worsen or progress. Med/Other Pt SpecificInfo: Prescription(s) given Scripts Docusate Sodium (Colace) 100 Mg Capsule 1 TAB PO BID for 10 Days Prov: Paul Morris MD 03/28/17 Magnesium Citrate Liq (Magnesium Citrate Liq) 300 Ml Liq 300 ML PO ONCE, #1 BOTTLE 0 Refills Prov: Paul Morris MD 03/28/17 Disposition: 01 DISCHARGE HOME Condition: Stable Paul Morris MD Mar 28, 2017 08:48
[2017-03-28 08:51] VITALS: RESP 18; O2SAT 99
[2017-03-28] MEDS ORDERED: MORPHINE SULFATE 2 MG/ML INJ IV ONE (09:00)
[2017-03-28 09:07] LABS: AUTOMATED NEUTROPHIL # 3.8 TH/MM3 (1.8-7.7); BASOPHIL % 0.7 % (0.0-2.0); EOSINOPHIL # 0.1 TH/MM3 (0-0.4); EOSINOPHIL % 1.5 % (0.0-4.0); HEMOGLOBIN 15.5 GM/DL (13.0-17.0); LYMPH % 28.7 % (9.0-44.0); LYMPHOCYTE # 1.8 TH/MM3 (1.0-4.8); MEAN CELL VOLUME 84.4 FL (80.0-100.0); MEAN CORPUSCULAR HEMOGLOBIN 28.5 PG (27.0-34.0); MEAN CORPUSCULAR HGB CONC 33.8 % (32.0-36.0); MEAN PLATELET VOLUME 8.1 FL (7.0-11.0); MONO % 9.5 % (0.0-8.0); MONOCYTE # 0.6 TH/MM3 (0-0.9); NEUT % 59.6 % (16.0-70.0); PLATELET COUNT 224 TH/MM3 (150-450); RED BLOOD COUNT 5.45 MIL/MM3 (4.50-5.90); RED CELL DISTRIBUTION WIDTH 14.4 % (11.6-17.2); WHITE BLOOD COUNT 6.4 TH/MM3 (4.0-11.0)
[2017-03-28 09:32] LABS: ALT (GPT) 28 U/L (12-78)
[2017-03-28 09:34] LABS: ALKALINE PHOSPHATASE 67 U/L (45-117); TOTAL BILIRUBIN ADULT 0.8 MG/DL (0.2-1.0); TOTAL PROTEIN 8.1 GM/DL (6.4-8.2)
[2017-03-28 09:39] LABS: ALBUMIN 4.2 GM/DL (3.4-5.0); AST (GOT) 29 U/L (15-37); BICARBONATE 28.8 MEQ/L (21.0-32.0); BLOOD UREA NITROGEN 12 MG/DL (7-18); CALCIUM 9.2 MG/DL (8.5-10.1); CHLORIDE 89 MEQ/L (98-107); CREATININE 1.33 MG/DL (0.60-1.30); GLOMERULAR FILTRATION RATE 51 ML/MIN (>89); GLUCOSE,RANDOM 235 MG/DL (74-106); LIPASE 66 U/L (73-393); SODIUM (NA) 126 MEQ/L (136-145)
[2017-03-28 09:42] VITALS: BP 197/91; PULSE 65
[2017-03-28] MEDS ORDERED: SODIUM CHLORID 0.9% 500 ML INJ 500 ML IV ONE (10:15)
[2017-03-28] MEDS ORDERED: HYDROmorphone HCL PF 2 MG/ML VIAL IV PUSH ONE (10:15)
[2017-03-28 10:45] VITALS: BP 110/68; PULSE 79
--- NOTE | 2017-03-28 11:17 | RADRPT ---
EXAM DATE/TIME: 03/28/2017 10:54 [facility] COMPARISON: No previous studies available for comparison. INDICATIONS : Epigastric pain and gas. ORAL CONTRAST: No oral contrast ingested. RADIATION DOSE: 10.15 CTDIvol (mGy) MEDICAL HISTORY : Cerebrovascular disease. Cardiovascular disease Hypertension.Diabetes. SURGICAL HISTORY : Cholecystectomy. ENCOUNTER: Initial ACUITY: 1 day PAIN SCALE: 4/10 LOCATION: epigastric region TECHNIQUE: Volumetric scanning of the abdomen and pelvis was performed. Using automated exposure control and ad justment of the mA and/or kV according to patient size, radiation dose was kept as low as reasonably achievable to obtain optimal diagnostic quality images. DICOM format image data is available electro nically for review and comparison. FINDINGS: LOWER LUNGS: The visualized lower lungs are clear. Coronary artery calcifications are present. LIVER: Homogeneous density without lesion. There is no dilation of the biliary tree. The patient is status post cholecystectomy. SPLEEN: Normal size without lesion. PANCREAS: Within normal limits. KIDNEYS: Normal in size and shape. There is no mass, stone, or hydronephrosis. ADRENAL GLANDS: Within normal limits. VASCULAR: There is no aortic aneurysm. Arterial calcifications are present. BOWEL/MESENTERY: There is a 2 cm duodenal diverticulum. There is a moderate amount of stool in the colon. Dilated smal l bowel is not seen. The appendix is normal. ABDOMINAL WALL: Within normal limits. RETROPERITONEUM: There is no lymphadenopathy. BLADDER: No wall thickening or mass. REPRODUCTIVE: There is a prominent left hydrocele measuring 7 cm in diameter. INGUINAL: There is no lymphadenopathy or hernia. MUSCULOSKELETAL: There is degenerative change in the lumbar spine. CONCLUSION: 1. Prominent stool throughout the colon. 2. Left hydrocele. Matthew Medel MD on March 28, 2017 at 11:11 Board Certified Radiologist. This report was verified electronically.
[2017-03-28] MEDS ORDERED: MAGNSOL2 PO (11:39)
[2017-03-28] MEDS ORDERED: COLA100C5 PO (11:39)
--- NOTE | 2017-03-28 22:27 | EKG ---
Date Performed: 03/28/2017 Time Performed: 09:28:07 PTAGE: 81 years EKG: Sinus rhythm RIGHT BUNDLE BRANCH BLOCK ABNORMAL ECG PREVIOUS TRACING : 03/24/2017 04.51 Compared to prior tracing no significant change DOCTOR: Artem Hutchison Interpretating Date/Time 03/28/2017 22:25:15
== END 2017-03-28 12:39 | disposition home or self-care (01) ==
LOC: NEPE 08:08
DX: R10.13 Epigastric pain (principal); K59.00 Constipation, unspecified; E78.00 Pure hypercholesterolemia, unspecified; E11.9 Type 2 diabetes mellitus without complications; I10 Essential (primary) hypertension; Z79.4 Long term (current) use of insulin
CPT/HCPCS: 74176; 80053; 83690; 85025; 93005; 96361; 96374; 96375; 99285; J2270; J2405; J7030; J7040